=== PATIENT | female | born 1980 | race Native Hawaiian/Other Pacific Islander ===

== ENCOUNTER 2017-05-16 05:17 | Inpatient (IN) | payer OTHER ==
[2017-05-16 05:51] VITALS: BMI 28.3
[2017-05-16] MEDS: Lactated Ringer's 1,000 ML IV SCH ×3 (06:00→17:32)
[2017-05-16] MEDS ORDERED: Oxytocin 30 UNITS in Sodium Chloride 0.9% 500 ML IV SCH (06:00)
[2017-05-16] MEDS ORDERED: ceFAZolin IV 1 gm in Dextrose 1 GM/50 ML BAG IVPB ONE (06:25)
[2017-05-16] MEDS ORDERED: Lactated Ringer's 1,000 ML IV SCH ×3 (06:30→10:30)
[2017-05-16 07:21] LABS: BASO % 0.1 % (0.0-2.0); EOS % 0.3 % (0.0-4.0); HEMOGLOBIN 12.5 g/dL (12.0-16.0); LYMPH # 1.5 K/uL (1.0-4.3); LYMPH % 17.5 % (20.0-40.0); MEAN CELL VOLUME 94.2 fl (81.0-99.0); MEAN CORPUSCULAR HEMOGLOBIN 32.5 pg (27.0-31.0); MEAN CORPUSCULAR HGB CONC 34.5 g/dL (33.0-37.0); MEAN PLATELET VOLUME 9.6 fl (7.2-11.7); MONO # 0.7 K/uL (0.0-0.8); MONO % 8.4 % (0.0-10.0); NEUT # 6.4 K/uL (1.8-7.0); NEUT % 73.7 % (50.0-75.0); NRBC % 0.1 % (0.0-0.0); RBC 3.85 Mil/uL (3.80-5.20); RED CELL DISTRIBUTION WIDTH 13.2 % (11.5-14.5); WHITE BLOOD COUNT 8.8 K/uL (4.8-10.8)
[2017-05-16] MEDS ORDERED: ePHEDrine 50 mg/ml Inj ONE (08:05)
[2017-05-16] MEDS ORDERED: Morphine 1 mg/ml preservative-free Inj(Duramorph) ONE (08:06)
[2017-05-16] MEDS ORDERED: Triamcinolone Acetonide 40 mg/mL Inj ONE (08:46)
[2017-05-16] MEDS ORDERED: Triamcinolone Acetonide 40 mg/mL Inj IAA ONE (08:47)
[2017-05-16] MEDS ORDERED: Oxycodone/Acetaminophen 5/325 mg Tab PO PRN ×3 (10:19→12:47)
[2017-05-16] MEDS ORDERED: Morphine 1 mg/ml preservative-free Inj(Duramorph) IT ONE (11:04)
--- NOTE | 2017-05-16 11:49 | OBADHP ---
Datetime: 05/16/2017 06:30 Admit Comment, IP Provider: 36 yo EGA 39.3 presents for scheduled repeat section. She shares of feeling well, +: FM. Denies: CTX, VB, LOF, CP/SOB/N/V/dysuria PNC: Dr. Banks OBHX: c/s x1 gyne/pap: negative for sti; 06/2016 NILM mhx: none Fam hx: lung pathology surg: c/s x1; appendectomy at age 9, unknown intestinal surgery x2 at age 9 soc: denies: smoking, etoh, illicit drugs Rx: pnv NKDA GBS:- ; ABO-Rh:A+ ; Ab:- ; HIV:- ; RPR:- ; GC/C:- ; Rubella:IM ; HbsAg:- ;TDap:04/17/2017 36 yo EGA 39.3 presents for scheduled repeat section. Admit for scheduled repeat c/s: cbc, ts, hiv, rpr, LR, pitocin, cefazolin 1gm Case d/w Dr. Hermila Yusuf MD Family Medicine, PGY1 Pelvic Type - PN: Adequate Extremities - PN: Normal Abdomen - PN: Normal Back - PN: Normal Breast - PN: Normal Lungs - PN: Normal Heart - PN: Normal Thyroid - PN: Normal Neurologic - PN: Normal HEENT - PN: Normal General - PN: Normal FHR - Baseline A Provider: 130 Vital Signs Provider: Reviewed; Within Normal Limits IP Chief Complaint: Scheduled Section NICHD Variability Prov Fetus A: Absent - Undetectable NICHD Accel Fetus A IP Provider: [id number] FHR Category Provider Fetus A: Category I NICHD Decel Fetus A IP Provider: None Genitourinary Exam: Normal DTRs - PN: Normal EGA AdmitDate IP: 39.3 IP Adm Impression: Term, intrauterine IP Admit Plan: Admit to unit; Initiate Section protocol
--- NOTE | 2017-05-16 11:52 | OBDS ---
DELIVERY PERSONNEL Nurse Fork Operator Certified: na Delivery Doctor: Dawn Banks MD Scrub Nurse: Aimee Rodriguez OBT Apparel Machinery Instructor: Dnaiella Santiago RN/Thi [place] Anesthesiologist: Certified Solid Waste Facility Operator: dennis Resident: MATERNAL INFORMATION Delivery Anesthesia: Epidural Maternal Complications: None Provider Comments: See operative report LABOR SUMMARY EDC: 05/20/2017 00:00 No. Babies in Womb: 1 LABOR INFORMATION Group B Beta Strep: Negative STAGES OF LABOR Stage 3 hrs: 0 Stage 3 min: 1 BABY A INFORMATION Infant Delivery Date/Time: 05/16/2017 09:29 Method of Delivery: Born in Route : No : N/A Forceps: N/A Vacuum Extraction: N/A Shoulder Dystocia : No SHOULDER DYSTOCIA BABY A Delivery Date/Time: 05/16/2017 09:29 PRESENTATION/POSITION BABY A Presentation: Cephalic Breech Presentation: N/A PLACENTA INFORMATION BABY A Placenta Delivery Time : 05/16/2017 09:30 Placenta Method of Delivery: Manual Removal Placenta Status: Delivered SCORES BABY A Heart Rate 1 min: >100 bpm Resp Effort 1 min: Good Cry Reflex Irritability 1 min: Cough or Sneeze or Pulls Away Muscle Tone 1 min: Active Motion Color 1 min: Body [place], Extremities Blue Resuscitation Effort 1 min: Tactile Stimulation SCORE 1 MIN: 9 Heart Rate 5 min: >100 bpm Resp Effort 5 min: Good Cry Reflex Irritability 5 min: Cough or Sneeze or Pulls Away Muscle Tone 5 min: Active Motion Color 5 min: Body [place], Extremities Blue Resuscitation Effort 5 min: Tactile Stimulation SCORE 5 MIN: 9 INFORMATION BABY A Gestational Age at Delivery: 39.3 Gestational Status: Term Infant Outcome : Liveborn Condition : Stable Sex: Male IDENTIFICATION/MEDS BABY A ID Band Number: [id number] ID Band Location: Left Leg; Left Arm Vitamin K Given : Not Given Erythromycin Given: Not Given WEIGHT/LENGTH BABY A Infant Birthweight (gms): 4080 Weight (lb): 9 Infant Weight (oz): 0 CORD INFORMATION BABY A No. Cord Vessels: 3 Nuchal Cord : N/A Cord Blood Taken: Yes Banking/Donate Info: yes--pt's own Infant Suction: Mouth ASSESSMENT BABY A Infant Complications: None Physical Findings at Delivery: Within Normal Limits Respirations: Appears Normal Vocational Auto Body Instructor/ALS Called : No Infant Care By: /Thi Good Transferred To: Remains with Mother
--- NOTE | 2017-05-16 19:15 | OP ---
PROCEDURE DATE: PREOPERATIVE DIAGNOSES: Intrauterine at 39 plus weeks, history of previous delivery, declined trial of labor. POSTOPERATIVE DIAGNOSES: Intrauterine at 39 plus weeks, history of previous delivery, declined trial of labor. OPERATION PERFORMED: Repeat low-flap transverse section via Pfannenstiel skin incision. SURGEON: Bud Banks MD. BROACH TROUBLE SHOOTER: Iam Cleaning DO, who was instrumental in the care of the patient, helped to create exposure, delivery of the , closure of the patient. The procedure would not have been possible without his assistance. TYPE OF ANESTHESIA: Spinal. ANESTHESIA ADMINISTERED BY: Leona Toussaint MD. OPERATIVE FINDINGS: Baby boy, vertex presentation. Apgars 9 and 9. Weighing 4080 grams. Normal uterus, tubes, and ovaries were identified. IV FLUID INTAKE: The patient received 1300 mL of D5 LR intraoperatively. ESTIMATED BLOOD LOSS: 800 mL. URINE OUTPUT: Approximately 800 mL. DESCRIPTION OF PROCEDURE: After informed consent was obtained, the patient was taken to the operating room where she was given spinal anesthesia. She was then prepped and draped in the normal sterile fashion with a leftward tilt. A Pfannenstiel skin incision was then made with a scalpel and carried down to the underlying layer of the fascia. The fascia was nicked in the midline. The fascial incision was then extended laterally with the curved Navarro scissors. Superior aspect of the fascial incision was then grasped with Noe clamps, elevated up and the rectus muscles were then dissected off using both sharp and blunt dissection. Attention was then turned to the inferior aspect of the fascial incision which in a similar fashion was grasped with Noe clamps, elevated up and the rectus muscles were dissected off using both sharp and blunt dissection. The rectus muscles were then in the midline. The peritoneum identified and entered sharply with the Metzenbaum scissors. The peritoneal incision was then extended superiorly and inferiorly with good visualization of the bladder. The bladder blade was inserted. The vesicouterine peritoneum was identified and entered sharply with the Metzenbaum scissors. The bladder flap was then created digitally. A low transverse incision was then made with a scalpel. The incision was then extended laterally with the bandage scissors. The 's head was then delivered atraumatically. The nose and mouth were suctioned with DeLee suction trap. The cord was clamped and cut. The infant was handed off to awaiting pediatricians. The placenta was then removed. Cord blood was obtained and then sent to [facility], cord blood bank registry. The placenta was then removed manually. The uterus was exteriorized and cleared off all clots and debris. The uterine incision was repaired with 0 Vicryl in a running locked fashion. A second layer of the same suture was used to obtain an excellent hemostasis. The uterus was returned to the abdomen. The abdomen was then copiously irrigated. The irrigant was removed with a suction device. The gutters were then cleared off all clots and debris. The incision was reexamined. Hemostasis was noted. The peritoneum was then closed with 2-0 Vicryl in a running fashion. The muscles were reapproximated with 0 Vicryl in an interrupted fashion. The fascia was closed with 0 Vicryl in a running fashion. The skin was closed with 4-0 on a Levi needle. All sponge, lap, needle and instrument counts were correct x2 and the patient was taken to recovery room in awake and stable condition. Bud Banks MD
[2017-05-16] MEDS: Oxycodone/Acetaminophen 5/325 mg Tab PO PRN (21:50)
[2017-05-17] MEDS: Lactated Ringer's 1,000 ML IV SCH (01:30)
[2017-05-17] MEDS: Oxycodone/Acetaminophen 5/325 mg Tab PO PRN ×2 (04:44→21:38)
[2017-05-17 06:21] LABS: HEMOGLOBIN 9.9 g/dL (12.0-16.0); MEAN CORPUSCULAR HEMOGLOBIN 31.7 pg (27.0-31.0); MEAN CORPUSCULAR HGB CONC 33.4 g/dL (33.0-37.0); RBC 3.13 Mil/uL (3.80-5.20); RED CELL DISTRIBUTION WIDTH 13.5 % (11.5-14.5)
--- NOTE | 2017-05-18 09:53 | OBPPN ---
Datetime: 05/17/2017 09:49 PP Pain Prov: Within normal limits PP Nausea Prov: Denies PP Flatus Prov: Yes PP Breasts Prov: Normal PP Heart Prov: Normal PP Lungs Prov: Normal PP Abdomen/Uterus Prov: Normal PP Lochia Prov: Normal PP Vulva/Perineum Prov: Normal PP CVA Tenderness Prov: Normal PP Extremities Prov: Normal PP Comments Phys Exam Prov: Plan removed Incision clean, dry, intact No deep calf tenderness bilaterally PP Impression Prov: Normal progression PP Plan Prov: Continue present management PP Progress Note Prov: Postoperative day 1 status post , recovering well Bed, ambulate Postoperative CBC Advanced to regular diet Pain control Romero out IP PP Procedures: None Vital Signs Provider PP: Reviewed; Within Normal Limits
--- NOTE | 2017-05-18 12:07 | OBPPN ---
Datetime: 05/18/2017 12:05 PP Pain Prov: Within normal limits PP Nausea Prov: Denies PP Flatus Prov: Yes PP BM Prov: Yes PP Breasts Prov: Normal PP Heart Prov: Normal PP Lungs Prov: Normal PP Abdomen/Uterus Prov: Normal PP Lochia Prov: Normal PP Vulva/Perineum Prov: Normal PP CVA Tenderness Prov: Normal PP Extremities Prov: Normal PP C/S Incision Prov: Normal PP Progress Prov: Normal PP Impression Prov: Normal progression PP Plan Prov: Continue present management PP Progress Note Prov: H/H 02/09 A; S/P day 2 Anemia asymtpomatic PLAN: anticiapte discharge in AM Vital Signs Provider PP: Reviewed; Within Normal Limits
--- NOTE | 2017-05-19 07:45 | OBPPN ---
Datetime: 05/19/2017 07:43 PP Pain Prov: Within normal limits PP Nausea Prov: Denies PP Flatus Prov: Yes PP BM Prov: Yes PP Breasts Prov: Normal PP Heart Prov: Normal PP Lungs Prov: Normal PP Abdomen/Uterus Prov: Normal PP Lochia Prov: Normal PP Vulva/Perineum Prov: Normal PP CVA Tenderness Prov: Normal PP Extremities Prov: Normal PP Progress Prov: Normal PP Impression Prov: Normal progression PP Plan Prov: Discharge PP Progress Note Prov: A; S/P day 3 PLAN: discharge home and folllow up in 1-2w Vital Signs Provider PP: Reviewed; Within Normal Limits
--- NOTE | 2017-05-19 07:50 | OBDCSUM ---
Datetime: 05/19/2017 07:43 Discharged to, Provider: Home Follow up at, Provider: Padmini Disch Instr Activity: Normal activity Disch Instr Diet: Regular Discharge Instructions, Provider: Routine instructions given Discharge Diagnosis, Provider: Term Delivered Follow up in weeks, Provider: 1-2w Disch Referrals: None Contraception discussed, Prov: Yes Disch Activity Restrictions: No lifting; No sexual activity; Nothing in vagina - [place], tampon s, douche
--- NOTE | 2017-05-19 16:50 | OBPPN ---
Datetime: 05/19/2017 16:30 PP Progress Note Prov: addendum: notified that pt staying with baby (phototherapy)
[2017-05-19] MEDS ORDERED: Oxycodone/Acetaminophen 5/325 mg Tab PO PRN (20:43)
--- NOTE | 2017-05-20 10:52 | OBPPN ---
Datetime: 05/20/2017 10:48 PP Pain Prov: Within normal limits PP Nausea Prov: Denies PP Flatus Prov: Yes PP BM Prov: Yes PP Breasts Prov: Normal PP Heart Prov: Normal PP Lungs Prov: Normal PP Abdomen/Uterus Prov: Normal PP Lochia Prov: Normal PP Vulva/Perineum Prov: Normal PP CVA Tenderness Prov: Normal PP Extremities Prov: Normal PP C/S Incision Prov: Normal PP Progress Prov: Normal PP Comments Phys Exam Prov: Incision clean, dry, intact Uterus firm, below umbilicus No deep calf tenderness bilaterally. PP Impression Prov: Normal progression PP Plan Prov: Discharge PP Progress Note Prov: Postop day #3 status post - recovering well. Discharge home today with postop precautions Patient will follow up this week for incision check. Plan discussed with patient and all patient questions answered. IP PP Procedures: None Vital Signs Provider PP: Reviewed; Within Normal Limits
[2017-05-20 19:01] VITALS: BP 91/62; PULSE 75; RESP 18; TEMP 97.7; O2SAT 96
== END 2017-05-20 14:45 | disposition home or self-care (01) | DRG 766 ==
LOC: H.EROB2 05:17 → H.L&D 05:38 → H.OB/GYN 12:56
PROVIDERS: ADMIT Obstetrics & Gynecology Gynecology; ATTEND Obstetrics & Gynecology Gynecology
PROC: 10D00Z1 Extraction of Products of Conception, Low, Open Approach (ICD-10-PCS; principal; 2017-05-16)
PROC: 4A1HXCZ Monitoring of Products of Conception, Cardiac Rate, External Approach (ICD-10-PCS; 2017-05-16)
DX: O34.211 Maternal care for low transverse scar from previous cesarean delivery (principal); O90.81 Anemia of the puerperium; D64.9 Anemia, unspecified; Z37.0 Single live birth; Z3A.39 39 weeks gestation of pregnancy